=== PATIENT | female | born 1950 | race Caucasian/White ===

== ENCOUNTER 2018-03-13 11:43 | Outpatient (CLI) | payer MEDICARE, OTHER ==
[2012-05-11 06:16] VITALS: BP 167/86
[2018-03-13 13:19] LABS: eGFR (Non-African) > 60
[2018-03-13 16:52] LABS: BASO % 0.5 % (0.0-1.5); EOS % 4.2 % (0.0-6.8); MCH. 30.2 pg (28.0-34.0); MCV 88.5 fL (80.0-100.0); MONOCYTE % 4.9 % (0.0-11.0); MONOCYTE ABS # 0.34 thou/uL (0.00-0.90); PLATELET COUNT 182 thou/uL (130-400)
== END 2018-03-13 11:44 ==
LOC: LAB 11:43
PROVIDERS: ATTEND Family Medicine
DX: I10 Essential (primary) hypertension (principal); E03.9 Hypothyroidism, unspecified
CPT/HCPCS: 36415; 80053; 80061; 84443; 85025

== ENCOUNTER 2018-11-23 10:30 | Outpatient (CLI) | payer MEDICARE, OTHER ==
[2012-05-11 06:16] VITALS: BP 167/86
[2018-12-05 17:36] LABS: HDL 31 mg/dL (>40); eGFR (Non-African) > 60
[2018-12-05 17:37] LABS: BASOPHILS % 2 % (0-2); SEGMENTED NEUTROPHILS % 40 % (39-79)
== END 2018-11-23 10:35 | disposition home or self-care (01) ==
LOC: LAB 10:30
PROVIDERS: ATTEND Family Medicine
DX: I10 Essential (primary) hypertension (principal); E78.5 Hyperlipidemia, unspecified; E03.9 Hypothyroidism, unspecified
CPT/HCPCS: 36415; 80048; 80061; 84439; 84443; 85025

== ENCOUNTER 2019-04-10 10:22 | Outpatient (CLI) | payer MEDICARE, OTHER ==
[2012-05-11 06:16] VITALS: BP 167/86
--- NOTE | 2019-04-10 14:56 | Diagnostic Imaging Report ---
PATIENT MR#: [id number] PATIENT PATIENT NAME: ROLY RAM DATE OF : 1950 REFERRING PHYSICIAN: Lucius Winter EXAM DATE: 04/10/2019 ACCESSION NUMBER: [id number] EXAM DESCRIPTION: C SPINE 2 OR 3 VIEWS HISTORY: NECK PAIN, DECREASED ROM; PT STATES LOSS OF ROM TO LT SIDE, NECK PAIN FOR X3 MONTHS. COMPARISON: No relevant comparison is available at the time of interpretation. C-SPINE XRAY, 5 views including odontoid views: Vertebral bodies: No compression deformities. The dens is intact and the lateral masses are symmetric . Disc spaces: Severe degenerative disc narrowing at C4-5, C5-6 and C6-7. Alignment: The head is tilted to the left. Mild reversal of the normal cervical lordosis. Minimal gra de 1 anterolisthesis of C3 over C4, within physiologic limits. Cervical vessels: Atherosclerotic calcification are noted within the carotid bulbs. Additional findings: Median sternotomy and CABG clips. IMPRESSION: 1. Reversal of the normal cervical lordosis with leftward head tilt, which may indicate an element of torticollis. 2. Severe degenerative disc disease at C4-5, C5-6 and C6-7. 3. Atherosclerotic disease of the carotid arteries. Read by: Dr. Johnathon Neville Transcribed by: Johnathon Neville Transcribed Date: 04/10/2019 2:55:33 PM Electronically signed by: Dr. Johnathon Neville Date signed: 04/10/2019 2:55:33 PM
== END 2019-04-10 10:32 ==
LOC: RAD 10:22
PROVIDERS: ATTEND Family Medicine
DX: M54.2 Cervicalgia (principal)
CPT/HCPCS: 72040

== ENCOUNTER 2019-04-24 10:51 | Outpatient (CLI) | payer MEDICARE, OTHER ==
[2012-05-11 06:16] VITALS: BP 167/86
[2019-04-24 11:42] LABS: BASOPHILS % 0.4 % (0.0-1.5); NEUTROPHILS # 2.7 # k/uL (1.4-7.7)
[2019-04-24 12:07] LABS: eGFR (Non-African) > 60
[2019-04-24 12:08] LABS: HDL 34 mg/dL (>40)
== END 2019-04-24 10:56 ==
LOC: LAB 10:51
PROVIDERS: ATTEND Family Medicine
DX: E78.1 Pure hyperglyceridemia (principal); I10 Essential (primary) hypertension; E03.9 Hypothyroidism, unspecified
CPT/HCPCS: 36415; 80053; 80061; 84443; 85025